=== PATIENT | female | born 1950 | race Caucasian/White ===

== ENCOUNTER 2019-06-20 09:16 | Day surgery (SDC) | payer OTHER, MEDICARE ==
[2019-06-20] MEDS ORDERED: INDOMETHACIN 50 MG SUPP PR (09:50)
[2019-06-20] MEDS ORDERED: IOHEXOL 300MG/ML 30 ML BTL (09:54)
[2019-06-20 10:24] LABS: ADD MAN DIFF? NO
[2019-06-20 10:29] LABS: WHITE BLOOD COUNT 7.8 10^3/ul (4.8-10.8)
[2019-06-20 10:29] LABS: BASOPHILS % 0.4 % (0.0-2.0); EOSINOPHILS # 0.1 10^3/ul (0.0-0.5); EOSINOPHILS % 1.3 % (0.0-7.0); LYMPHOCYTES # 1.6 10^3/ul (0.8-2.9); LYMPHOCYTES % 20.4 % (15.0-51.0); MEAN CORPUSCULAR HEMOGLOBIN 31.3 pg (29.0-33.0); MEAN CORPUSCULAR HGB CONC 32.6 g/dl (32.0-37.0); MEAN PLATELET VOLUME 10.4 fl (7.4-10.4); MONOCYTE # 0.6 10^3/ul (0.3-0.9); NEUTROPHIL # 5.5 10^3/ul (1.6-7.5); NEUTROPHILS % 70.5 % (39.0-77.0); PLATELET COUNT 278 10^3/UL (140-415); RED BLOOD COUNT 4.79 10^6/ul (4.20-5.40); RED CELL DISTRIBUTION WIDTH 12.6 % (11.5-14.5)
[2019-06-20] MEDS ORDERED: PROPOFOL 20 ML (10:47)
[2019-06-20] MEDS ORDERED: ROCURONIUM 50 MG INJ (10:47)
[2019-06-20] MEDS ORDERED: GLYCOPYRROLATE 0.4 MG INJ (10:47)
[2019-06-20] MEDS ORDERED: LIDOCAINE 2% (SDV) 5 ML INJ (10:47)
[2019-06-20] MEDS ORDERED: SUCCINYLCHOLINE CHLORIDE 100 MG/5 ML SYG IV (10:47)
[2019-06-20] MEDS ORDERED: NEOSTIGMINE 3 MG/3 ML SYRINGE (10:47)
[2019-06-20 10:48] LABS: ANION GAP 4 (5-13); BLOOD UREA NITROGEN 14 mg/dl (7-20); CALCIUM 10.2 mg/dl (8.4-10.2); CARBON DIOXIDE 29 mmol/L (21-31); CHLORIDE 108 mmol/L (97-110); CREATININE 0.67 mg/dl (0.44-1.00); Estimated GFR > 60 mL/min (>60); GLUCOSE 112 mg/dl (70-220); POTASSIUM 4.3 mmol/L (3.5-5.1); SODIUM 141 mmol/L (135-144)
[2019-06-20 10:50] LABS: INR 0.96; PROTIME 12.9 Sec (11.9-14.9)
[2019-06-20 10:51] LABS: PARTIAL THROMBOPLASTIN TIME 31.5 Sec (23.0-35.0)
[2019-06-20] MEDS ORDERED: CIPROFLOXACIN 400MG/D5W 200 ML (11:27)
[2019-06-20] MEDS ORDERED: EPHEDrine 25 MG/5 ML SYG IV (11:30)
[2019-06-20] MEDS ORDERED: LABETALOL HCL 20MG INJ IV (11:30)
[2019-06-20] MEDS ORDERED: DIPHENHYDRAMINE 50 MG INJ IV (11:30)
[2019-06-20] MEDS ORDERED: MIDAZOLAM 1 MG/ML 2 ML INJ IV (11:30)
[2019-06-20] MEDS ORDERED: hydrALAzine 20 MG INJ IV (11:30)
[2019-06-20] MEDS ORDERED: METOCLOPRAMIDE 10 MG INJ IV (11:30)
[2019-06-20] MEDS ORDERED: OXYCODONE/ACETAMINOPHEN (5/325) TAB PO ×2 (11:30)
[2019-06-20] MEDS ORDERED: HYDROmorphONE 1 MG/5 ML IV SYRINGE IV ×3 (11:30)
[2019-06-20] MEDS: ONDANSETRON 4 MG INJ IV (12:17)
== END 2019-06-20 13:35 | disposition home or self-care (01) ==
LOC: GIL 09:16 → SDS 09:16 → GIL 13:35
DX: K80.50 Calculus of bile duct without cholangitis or cholecystitis without obstruction (principal); I10 Essential (primary) hypertension
CPT/HCPCS: 43264; 74330; 80048; 85025; 85610; 85730; 93005